=== PATIENT | female | born 1965 | race Caucasian/White ===

== ENCOUNTER 2017-02-23 17:10 | Emergency (ER) | payer OTHER ==
[~2017-02-23] VITALS: Ht 160 cm; Wt 102.2 kg
[~2017-02-23 17:10] MED LIST: AMOXICILLIN500 MG PO; ANTIDEPRESSANT; ASCORBIC ACID500 M3 PO; ASPIRIN EC325 MG PO; ASPIRIN325 MG PO; B COMPLETE1 EACH PO; BENADRYL25 MG PO; BENTYL10 MG PO; CALCIUM CARBON300 MG PO; CYMBALTA30 MG PO; CYMBALTA60 MG PO; DILAUDID2 MG PO; ESTRADIOL1 EA10 TD; FOLGARD1 TABLET PO; HYDROCODON-ACE1 EAC7 PO; HYSINGLA ER30 MG PO; IBUPROFEN400 MG PO; IBUPROFEN800 MG PO; KEFLEX500 MG PO; LITE COAT ASPI325 M1 PO; LORAZEPAM0.5 MG PO; MELATONIN5 M1 PO; METFORMIN HCL500 M1 PO; METFORMIN HCL500 MG PO; METOCLOPRAMIDE10 MG PO; MIRALAX17 GM PO; MOTRIN800 MG PO; NEPHRO-VITE RX1 EACH PO; NEXIUM20 MG PO; NEXIUM40 MG PO; NICODERM CQ1 EAC1 TD; NITROSTAT0.4 MG SL; NORCO 5/3251 TABLET PO; PERCOCET 5/31 TABLET PO; PROMETHAZINE12.5 M1 PO; REGLAN10 MG PO; REQUIP4 MG PO; ROPINIROLE HCL4 M1 PO; SIMVASTATIN20 MG PO; STOOL SOFTENER100 MG PO; SYNTHROID112 MCG PO; SYNTHROID125 MCG PO; SYNTHROID175 MCG PO; TOFRANIL25 MG PO; TOPIRAMATE25 MG PO; TUMS500 MG PO; VALIUM10 MG PO; VALIUM5 MG PO; VENTOLIN HFA18 GM IH; VITAMIN D-32000 UNI2 PO; VITAMIN D250000 UNIT PO; VITAMIN D31000 UNIT PO; VITAMIN E100 UNIT PO; VITAMIN E400 UNIT PO; WOMEN'S DAILY1 EAC1 PO; ZOFRAN ODT4 MG PO; ZOFRAN4 MG PO; ZYRTEC10 M2 PO; synthroid PO
[2017-02-23 17:18] VITALS: BP 145/70
== END 2017-02-23 18:11 | disposition home or self-care (01) ==
LOC: EME 17:10
DX: T81.31XA Disruption of external operation (surgical) wound, not elsewhere classified, initial encounter (principal); E11.9 Type 2 diabetes mellitus without complications; J44.9 Chronic obstructive pulmonary disease, unspecified; F17.200 Nicotine dependence, unspecified, uncomplicated
CPT/HCPCS: 99281; 99283

== ENCOUNTER 2017-03-09 18:58 | Emergency (ER) | payer OTHER ==
[~2017-03-09] VITALS: Ht 160 cm; Wt 102.1 kg
[2017-03-09] MEDS ORDERED: ESTRADIOL1 EA11 TD (19:55)
[2017-03-09] MEDS ORDERED: NEXIUM 24HR20 MG PO (19:55)
[2017-03-09] MEDS ORDERED: VITAMIN B6 PO (19:57)
[2017-03-09] MEDS ORDERED: MULTIVITAMIN1 EAC2 PO (19:58)
[2017-03-09 21:15] LABS: BASOPHIL COUNT 0.1 K/uL (0-0.1); EOSINOPHIL (%) 2.2 % (0-5); EOSINOPHIL COUNT 0.3 K/uL (0-0.3); IMMATURE GRANULOCYTE (%) 0.4 % (0.0-0.7); IMMATURE GRANULOCYTE COUNT 0.1 K/uL; INSTRUMENT ABS NEUTROPHIL CT 8.6 K/uL; LYMPHOCYTE COUNT 3.8 K/uL (1.0-2.8); MCH 29.1 PG (29.0-34.0); MCHC 32.4 G/DL (30.0-36.0); MCV 89.8 FL (83-99); MONOCYTE (%) 8.1 % (3-12); MONOCYTE COUNT 1.1 K/uL (0-0.8); NEUTROPHIL (%) 61.5 % (45-76); NEUTROPHIL COUNT 8.6 K/uL (1.8-6.4); RBC DIS.WIDTH-CV 16.1 % (11.8-14.6); RBC DIS.WIDTH-SD 52.6 % (39-53); RED BLOOD COUNT 5.01 M/uL (3.80-5.20); WHITE BLOOD COUNT 13.9 K/uL (4.1-10.2)
[2017-03-09 21:26] LABS: CHLORIDE 103 mEq/L (99-109); POTASSIUM 5.1 mEq/L (3.7-5.4); SODIUM 136 mEq/L (136-147)
[2017-03-09 21:28] LABS: GLUCOSE 134 mg/dL (70-99)
[2017-03-09 21:29] LABS: ANION GAP 16 MEQ/L (2-14)
[2017-03-09 21:30] LABS: TOTAL BILIRUBIN 0.1 mg/dL (0.0-1.0)
[2017-03-09 21:31] LABS: ALKALINE PHOSPHATASE 74 IU/L (3-129)
[2017-03-09 21:32] LABS: GFR ESTIMATE (CALCULATED) > 59 mL/min/
[2017-03-09 21:33] LABS: UREA NITROGEN (BUN) 11 mg/dL (9-23)
[2017-03-09 22:04] LABS: PLAT.SUFFICIENCY ADEQUATE; PLATELET CLUMPS PRESENT - PLATELET COUNT APPEARS ADQ.; PLATELET COUNT UNABLE TO REPORT K/uL (156-360)
[2017-03-09] MEDS ORDERED: PERCOCET 5/31 TABLET PO (23:40)
[2017-03-10 01:04] VITALS: BP 122/83
== END 2017-03-10 01:07 | disposition home or self-care (01) ==
LOC: EME 18:58
PROVIDERS: Emergency Medicine
DX: M96.840 Postprocedural hematoma of a musculoskeletal structure following a musculoskeletal system procedure (principal); G89.18 Other acute postprocedural pain; M25.522 Pain in left elbow; E86.0 Dehydration; Z98.2 Presence of cerebrospinal fluid drainage device; F17.200 Nicotine dependence, unspecified, uncomplicated; E03.9 Hypothyroidism, unspecified; E11.9 Type 2 diabetes mellitus without complications; Z79.84 Long term (current) use of oral hypoglycemic drugs; E78.5 Hyperlipidemia, unspecified; Z79.82 Long term (current) use of aspirin
CPT/HCPCS: 73080; 80053; 85025; 93971; 99281; 99285; J7030

== ENCOUNTER 2018-03-22 12:41 | Emergency (ER) | payer OTHER ==
[~2018-03-22] VITALS: Ht 157.5 cm; Wt 100.9 kg
[~2018-03-22 12:41] MED LIST changes: +ESTRADIOL1 EA11 TD; +MULTIVITAMIN1 EAC2 PO; +NEXIUM 24HR20 MG PO; +VITAMIN B6 PO
[2018-03-22 13:57] LABS: HEMATOCRIT 43.5 % (36.0-46.0); HEMOGLOBIN 14.6 G/DL (11.9-15.5); MCH 30.7 PG (29.0-34.0); MCHC 33.6 G/DL (30.0-36.0); MCV 91.4 FL (83-99); PLATELET COUNT 237 K/uL (156-360); RBC DIS.WIDTH-CV 15.9 % (11.8-14.6); RBC DIS.WIDTH-SD 53.8 % (39-53); RED BLOOD COUNT 4.76 M/uL (3.80-5.20); WHITE BLOOD COUNT 10.6 K/uL (4.1-10.2)
[2018-03-22 14:05] LABS: ALBUMIN 4.4 g/dL (3.2-4.8); CHLORIDE 100 mEq/L (99-109); POTASSIUM 4.3 mEq/L (3.7-5.4); SODIUM 138 mEq/L (136-147)
[2018-03-22 14:08] LABS: GLUCOSE 104 mg/dL (70-99); TOTAL PROTEIN 7.4 g/dL (6.4-8.3)
[2018-03-22 14:09] LABS: TOTAL BILIRUBIN 0.2 mg/dL (0.0-1.0)
[2018-03-22 14:11] LABS: ALKALINE PHOSPHATASE 95 IU/L (3-129); CREATININE 0.7 mg/dL (0.6-1.3); GFR ESTIMATE (CALCULATED) > 59 mL/min/
[2018-03-22 14:12] LABS: UREA NITROGEN (BUN) 13 mg/dL (9-23)
[2018-03-22 14:13] LABS: AST (GOT) 21 IU/L (2-34)
[2018-03-22 14:14] LABS: ALT (GPT) 33 IU/L (3-49)
[2018-03-22 15:10] LABS: APPEARANCE SL.HAZY ((CLEAR)); BILIRUBIN NEGATIVE; BLOOD MODERATE; COLOR YELLOW ((YELLOW)); GLUCOSE (STRIP) NEGATIVE; KETONES NEGATIVE; LEUKOCYTES LARGE; NITRITE NEGATIVE; PROTEIN (STRIP) NEGATIVE; SPECIFIC GRAVITY 1.008 (1.000-1.030); UROBILINOGEN 0.2 MG/DL (0.2-1.0)
[2018-03-22 15:21] LABS: BACTERIA RARE /HPF; EPITHELIAL CELLS RARE /HPF; HYALINE CASTS 0-5 /LPF; MUCUS NONE SEEN /LPF; RED BLOOD CELLS 0-5 /HPF (0-5); UCUL ADDED? YES; WHITE BLOOD CELLS TNTC /HPF (0-5)
[2018-03-22 15:24] LABS: LIPASE 46 U/L (1.0-51.0)
[2018-03-22] MEDS ORDERED: KEFLEX500 MG PO (16:28)
[2018-03-22] MEDS ORDERED: FLOXIN OTIC SOLN5 ML BOTH EARS (16:28)
[2018-03-22 16:45] VITALS: BP 128/72
== END 2018-03-22 16:45 | disposition home or self-care (01) ==
LOC: EXP 12:41 → EME 12:41 → EXP 16:45
DX: N39.0 Urinary tract infection, site not specified (principal); B96.20 Unspecified Escherichia coli [E. coli] as the cause of diseases classified elsewhere; H60.92 Unspecified otitis externa, left ear; D35.01 Benign neoplasm of right adrenal gland; E89.0 Postprocedural hypothyroidism; G43.909 Migraine, unspecified, not intractable, without status migrainosus; F17.200 Nicotine dependence, unspecified, uncomplicated; F32.9 Major depressive disorder, single episode, unspecified; Z79.84 Long term (current) use of oral hypoglycemic drugs; Z79.82 Long term (current) use of aspirin; Z90.49 Acquired absence of other specified parts of digestive tract; Z90.711 Acquired absence of uterus with remaining cervical stump; Z98.51 Tubal ligation status
CPT/HCPCS: 74176; 80053; 81003; 83690; 85027; 87077; 87086; 87186; 99281; 99284; J1885

== ENCOUNTER 2018-07-01 22:58 | Emergency (ER) | payer OTHER ==
[~2018-07-01] VITALS: Ht 157.5 cm; Wt 110.4 kg
[~2018-07-01 22:58] MED LIST changes: +FLOXIN OTIC SOLN5 ML BOTH EARS
[2018-07-02] MEDS ORDERED: NORCO 7.5/321 TABLET PO (01:38)
[2018-07-02] MEDS ORDERED: MOTRIN800 MG PO (01:38)
[2018-07-02] MEDS ORDERED: VALIUM5 MG PO (01:38)
[2018-07-02 02:38] VITALS: BP 139/76
== END 2018-07-02 02:39 | disposition home or self-care (01) ==
LOC: EME 22:58
DX: S16.1XXA Strain of muscle, fascia and tendon at neck level, initial encounter (principal); S80.02XA Contusion of left knee, initial encounter; M23.92 Unspecified internal derangement of left knee; S79.912A Unspecified injury of left hip, initial encounter; W18.30XA Fall on same level, unspecified, initial encounter; Z98.2 Presence of cerebrospinal fluid drainage device; Z79.82 Long term (current) use of aspirin; Z79.84 Long term (current) use of oral hypoglycemic drugs; F17.200 Nicotine dependence, unspecified, uncomplicated
CPT/HCPCS: 73502; 73564; 73610; 99281; 99284; J3010

== ENCOUNTER 2018-07-12 17:31 | Emergency (ER) | payer OTHER ==
[~2018-07-12] VITALS: Ht 157.5 cm; Wt 110.7 kg
[~2018-07-12 17:31] MED LIST changes: +NORCO 7.5/321 TABLET PO
[2018-07-12] MEDS ORDERED: KEFLEX500 MG PO (20:39)
[2018-07-12 20:54] VITALS: BP 138/67
== END 2018-07-12 20:56 | disposition home or self-care (01) ==
LOC: EME 17:31
DX: M25.562 Pain in left knee (principal); M79.652 Pain in left thigh; R60.0 Localized edema; F32.9 Major depressive disorder, single episode, unspecified; F17.200 Nicotine dependence, unspecified, uncomplicated; Z90.49 Acquired absence of other specified parts of digestive tract
CPT/HCPCS: 73590; 73630; 93971; 99281; 99284; J1885